=== PATIENT | female | born 1965 | race African-American/Black ===

== ENCOUNTER 2018-08-20 13:22 | Emergency (ER) | payer OTHER ==
[2018-08-20 13:35] VITALS: BP 167/93; PULSE 81; TEMP 98.3; BMI 38.2
[2018-08-20] MEDS ORDERED: diazePAM 5 MG TABLET PO ONE (14:29)
[2018-08-20] MEDS ORDERED: KETOROLAC TROMETHAMINE 30 MG/1 ML VIAL IM ONE (14:29)
[2018-08-20] MEDS ORDERED: diazePAM 5 MG TABLET ONE (14:33)
[2018-08-20] MEDS ORDERED: KETOROLAC TROMETHAMINE 30 MG/1 ML VIAL ONE (14:33)
--- NOTE | 2018-08-20 14:35 | PDOC ---
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 She denies any neurosensory deficits, incontinence of bladder or bowel, urinary retention, saddle anesthesia, foot drop, history of IV drug use or cancer. REVIEW OF SYSTEMS: GENERAL: Afebrile, denies any weakness RESPIRATORY: No cough, wheezing, or hemoptysis. CARDIAC: No chest pain or shortness of breath MUSCULOSKELETAL: Pain to ower back. No point tenderness. Pain worse on right than left. SKIN : No erythema, no bruising, no deformity. GI/: Denies any abdominal pain, no urinary difficulty, incontinence or urinary retention. RECTAL: Denies any difficulty this A.m. NEUROLOGICAL: Denies any numbness or tingling. No neurosensory deficits. PHYSICAL EXAM: GENERAL: The patient is awake, alert, and fully oriented, in no acute distress. RESPIRATORY: Lungs clear bilaterally, no rhonchi wheezes or crackles CARDIAC: S1-S2 audible, no murmur rub or gallop MUSCULOSKELETAL: Pain to right sided lower back, nonradiating, no tingling or sensory deficit. Less than 2 second cap refill, +2 pedal pulses. No spinal point tenderness. Normal reflexive and no deficits to sensation or strength. Palpable muscle spasm to right paraspinous musculature. GI/: Abdomen soft, nontender, nondistended. No rebound tenderness. No masses palpable. RECTAL: Deferred patient with no neurological findings SKIN: Warm, Dry, normal turgor, no erythema, no edema no bruising. Past History - Past Medical History Allergies/Adverse Reactions: Allergies Allergy/AdvReac Type Severity Reaction Status Date / Time No Known Allergies Allergy Verified 08/20/18 13:30 Home Medications: Ambulatory Orders Montelukast Na [Singulair] 10 mg PO HS 03/30/13 Tiotropium Camillus [Spiriva] 1 inh IH BID 03/30/13 Budesonide/Formeterol Fumarate [SYMBICORT 160/4.5mcg -] 2 inh PO BID 02/23/15 Chlorthalidone 25 mg PO DAILY 02/23/15 Diltiazem [Cardizem -] 100 mg PO DAILY 02/23/15 Folic Acid - 2 mg PO DAILY 02/23/15 Methocarbamol [Robaxin -] 1,500 mg PO Q8H #30 tablet 08/20/18 Anemia: Yes (IRON DEF) Asthma: Yes Cancer: No Cardiac Disorders: No CVA: No COPD: No CHF: No Dementia: No Diabetes: No GI Disorders: No Disorders: No HTN: Yes Hypercholesterolemia: No Liver Disease: No Seizures: No Thyroid Disease: Yes (HYPERTHYROIDISM) - Surgical History Orthopedic Surgery: Yes (ROTATOR CUFF REPAIR - RIGHT) - Immunization History Immunization Up to Date: Yes - Suicide/Smoking/Psychosocial Hx Smoking Status: No Smoking History: Never smoked Have you smoked in the past 12 months: No Number of Cigarettes Smoked Daily: 0 Information on smoking cessation initiated: No 'Breaking Loose' booklet given: 03/30/13 Hx Alcohol Use: No Drug/Substance Use Hx: No Substance Use Type: Alcohol Hx Substance Use Treatment: No *Physical Exam - Vital Signs Last Vital Signs Temp Pulse Resp BP Pulse Ox 98.3 F 81 16 167/93 98 08/20/18 13:31 08/20/18 13:31 08/20/18 13:31 08/20/18 13:31 08/20/18 13:31 Moderate Sedation - Procedure Monitoring Vital Signs: Procedure Monitoring Vital Signs Temperature 98.3 F 08/20/18 13:31 Pulse Rate 81 08/20/18 13:31 Respiratory Rate 16 08/20/18 13:31 Blood Pressure 167/93 08/20/18 13:31 O2 Sat by Pulse Oximetry (%) 98 08/20/18 13:31 Medical Decision Making - Medical Decision Making 08/20/18 14:34 A/P: 53-year-old woman with right paraspinous muscle spasms Toradol 30 mg IM Final 5 mg orally Discharge home with prescription for Robaxin. *DC/Admit/Observation/Transfer Diagnosis at time of Disposition: Muscle spasm of back Back pain Qualifiers: Back pain location: low back pain Chronicity: acute Back pain laterality: right Sciatica presence: with sciatica Sciatica laterality: sciatica of right side Qualified Code(s): M54.41 - Lumbago with sciatica, right side - Discharge Dispostion Disposition: HOME Condition at time of disposition: Stable Decision to Admit order: No - Prescriptions Prescriptions: Methocarbamol [Robaxin -] 1,500 mg PO Q8H #30 tablet - Referrals Referrals: Sandra Goldman MD [Primary Care Provider] - - Patient Instructions Additional Instructions: Rest. Take Aleve as needed for pain. Follow manufacturers instructions for appropriate dosage. Warm moist heat applied to your back may help alleviate pain. Robaxin 1500mg 3 times a day as needed for back pain. Return to emergency department for numbness or tingling to the feet, rectum or genitals, worsening pain, or any other concerns. Thank you very much for choosing us to provide your emergent healthcare needs. - Post Discharge Activity Forms/Work/School Notes: Back to Work
== END 2018-08-20 14:41 | disposition home or self-care (01) ==
LOC: JERFT 13:22
PROC: 3E0233Z Introduction of Anti-inflammatory into Muscle, Percutaneous Approach (ICD-10-PCS; principal; 2018-08-20)
DX: M54.41 Lumbago with sciatica, right side (principal); M62.830 Muscle spasm of back; I10 Essential (primary) hypertension; D50.9 Iron deficiency anemia, unspecified; J45.909 Unspecified asthma, uncomplicated
CPT/HCPCS: 99281-25